=== PATIENT | female | born 1990 | race Caucasian/White ===

== ENCOUNTER 2017-06-07 20:16 | Emergency (ER) | payer SELFPAY ==
[~2017-06-07] VITALS: Ht 149.9 cm; Wt 55.1 kg
[2017-06-07 20:24] VITALS: BP 116/77
--- NOTE | 2017-06-07 21:53 | NUR ---
Pt came to ED c/o lower left back and sacral pain 8/10 x6 hrs after injury with twisting motion at mateo. S ER MD aware. Continue to monitor.
[2017-06-07 21:55] VITALS: BP 116/77
--- NOTE | 2017-06-07 23:15 | NUR ---
Spoke to forest economics professor [id number] Flannery to interpret for discharge from ED.
== END 2017-06-07 23:23 | disposition home or self-care (01) ==
LOC: MED 20:16
DX: M79.1 Myalgia (principal); R10.9 Unspecified abdominal pain
CPT/HCPCS: 72170; 81002; 81025; 99283